=== PATIENT | female | born 1980 | race Two or more races ===

== ENCOUNTER → 2024-03-07 | Outpatient (CLI) | payer MEDICAID, SELFPAY ==
--- NOTE | 2024-03-07 14:30 | XR_ITS ---
Examination: Diagnostic digital mammography, unilateral, right Computer aided detection 3-D breast Tomosynthesis, unilateral Date and time of exam: February 28, 2024 1411 hours comparison made to mammograms dating to May 17, 2019 INDICATIONS: Patient states right breast pain several months, history left breast biopsy Technique: Nonmagnified MLO, CC views of the right breast have been obtained, reconstructed from 3-D Tomosynthesis images. R2 computer aided detection program utilized for evaluation of suspicious masses and/or abnormal calcifications. 3-D Tomosynthesis images obtained. Findings: The breast is heterogeneously dense, which may obscure small masses 4 mm circumscribed nodule nipple level right breast posterior depth Benign calcifications Impression: BI-RADS category 0: Incomplete: Need additional imaging evaluation 4 mm circumscribed nodule nipple level right breast posterior depth, recommend follow-up spot tomographic views of this nodule as well as right breast sonography to complete the workup
== END | disposition home or self-care (01) ==
PROVIDERS: Referring Provider Nurse Practitioner Family; Visit Provider Nurse Practitioner Family
DX: R92.8 Other abnormal and inconclusive findings on diagnostic imaging of breast (principal); N63.10 Unspecified lump in the right breast, unspecified quadrant
CPT/HCPCS: 77061; 77065; G0279

== ENCOUNTER → 2024-04-21 | Outpatient (CLI) | payer MEDICAID, SELFPAY ==
--- NOTE | 2024-04-21 16:00 | XR_ITS ---
Examination: Breast ultrasound, unilateral, right complete Date and time of exam: April 21, 2024 at 1600 hrs. Indications: Mammogram March 30 2024 mm nodule nipple level right breast posterior depth Technique: Real-time abdul scale ultrasonographic imaging performed right breast including all 4 quadrants as well as nipple retroareolar and axillary region. Findings: 12:00 nodule 4 x 4 millimeter 1:00 nodule 4 x 4 millimeter 4:00 nodule 5 x 5 mm 6:00 nodule 5 x 5 mm 7:00 irregular mass lobular margins, 8 x 4 mm 8:00 nodule 6 x 3 mm 10:00 cyst 11 x 7 mm Retroareolar cyst 2 x 2 mm Smaller nodules Impression: BI-RADS Category 3: Probably benign findings. One additional 6 month right breast sonogram follow-up is needed to document stability of multiple solid breast nodules
== END | disposition home or self-care (01) ==
PROVIDERS: PCP Nurse Practitioner Family; Referring Provider Nurse Practitioner Family; Visit Provider Nurse Practitioner Family
DX: N63.15 Unspecified lump in the right breast, overlapping quadrants (principal); N63.12 Unspecified lump in the right breast, upper inner quadrant; N63.13 Unspecified lump in the right breast, lower outer quadrant; N63.14 Unspecified lump in the right breast, lower inner quadrant
CPT/HCPCS: 76641

== ENCOUNTER → 2024-10-24 | Outpatient (CLI) | payer MEDICAID, SELFPAY ==
--- NOTE | 2024-10-24 08:45 | XR_ITS ---
Examination: Breast ultrasound, unilateral, right complete Date and time of exam: October 24, 2024 0856 hours INDICATIONS: Right breast sonogram April 21, 2024 12:00 nodule 4 mm 1:00 nodule 4 mm 4:00 nodule 5 mm, 6:00 nodule 5 mm, 7:00 irregular mass lobular margins 8 mm, 8:00 nodule 6 mm Technique: Real-time abdul scale ultrasonographic imaging performed right breast including all 4 quadrants as well as nipple retroareolar and axillary region. Findings: 9:00 cyst 11 x 10 mm Multiple smaller cysts No solid nodules IMPRESSION: BI-RADS Category 2: Benign findings
== END | disposition home or self-care (01) ==
LOC: CDIM 08:34
PROVIDERS: Referring Provider Nurse Practitioner Family; Visit Provider Nurse Practitioner Family
DX: R92.8 Other abnormal and inconclusive findings on diagnostic imaging of breast (principal)
CPT/HCPCS: 76641

== ENCOUNTER → 2025-01-26 | Outpatient (CLI) | payer MEDICAID, SELFPAY ==
--- NOTE | 2025-01-26 08:30 | XR_ITS ---
Examination: Breast ultrasound, unilateral, right complete Date and time of exam: January 26, 2025, 0933 hours INDICATIONS: Palpable lump lower right breast noticed beginning 1 month ago, history left axillary biopsy May 12, 2023 negative Technique: Real-time abdul scale ultrasonographic imaging performed right breast including all 4 quadrants as well as nipple retroareolar and axillary region. Findings: 6:00 cyst 10 x 9 mm 9:00 cyst 6 x 7 mm 10:00 cyst 12 x 14 mm No solid nodules Smaller cysts IMPRESSION: BI-RADS Category 2: Benign findings
--- NOTE | 2025-01-26 09:30 | XR_ITS ---
Examination: Diagnostic digital mammography, unilateral, right Computer aided detection 3-D breast Tomosynthesis, unilateral Date and time of exam: January 26, 2025, 0943 hours INDICATIONS: Mammogram March 07, 2024 4 mm circumscribed nodule nipple level right breast posterior depth Technique: Nonmagnified MLO, CC views of the right breast have been obtained, reconstructed from 3-D Tomosynthesis images. R2 computer aided detection program utilized for evaluation of suspicious masses and/or abnormal calcifications. 3-D Tomosynthesis images obtained. Findings: The breast is heterogeneously dense, which may obscure small masses No suspicious nodule is depicted Impression: BI-RADS category 2: Benign findings Recommend yearly follow-up mammography
== END | disposition home or self-care (01) ==
LOC: CDIM 09:11
PROVIDERS: Referring Provider Nurse Practitioner Family; Visit Provider Nurse Practitioner Family
DX: R92.321 Mammographic fibroglandular density, right breast (principal)
CPT/HCPCS: 76641; 77061; 77065; G0279